=== PATIENT | male | born 1950 | race African-American/Black ===

== ENCOUNTER → 2017-04-19 | Outpatient (CLI) | payer MEDICARE, OTHER ==
[~2017-04-19] MED LIST: ACETAMINOPHEN325 MG PO; ADVAIR 250-501 EACH IH; ADVAIR INH; ALBUTEROL17 GM INH; CAPOZIDE PO; DAPTOMYCIN IV; IBUPROFEN PO; KCL PO; LASIX PO; OMNICEF PO; PERCOCET5/325 PO; PROTONIX PO; TRIAMTERENE-HC1 EACH PO; ZITHROMAX PO; ZYLOPRIM PO
--- NOTE | ~2017-04-19 | MR113 ---
[facility] A Service of [facility] & [facility] RADIOLOGY TEXT RESULTS PATIENT: JOYCE STANFORD LOCATION: [facility] : 50 UNIT #: [id number] AGE: [address]: KARLEE SAHNI SEX: M ORDER DR: [id number] [address] [address] [id number] O MR#: [id number] Acc #: [id number] NAME: JOYCE STANFORD. : 1950 SEX: M STUDY DATE/TIME: 04/19/2017 13:54 UNIT: [facility] ROOM: STUDY DESCRIPTION: MR Lumbar Wo Contrast Attending Physician: Karlee Sahni M.D. Referring Physician: Karlee Sahni M.D. Ordering Physician: Crow Puentes M.D. Primary Care Physician: Crow Puentes M.D. MRI CENTER REPORT This report is preliminary unless electronic signature is present. EXAM MRI of the lumbar spine without HISTORY Patient with low back pain. Increasing low back pain with right lower extremity radiculopathy and right groin pain for 4 months. Patient has had frequent falls. No history of cancer. TECHNIQUE MRI of the lumbar spine was performed without contrast using routine 1.5-T imaging technique on a wide-bore system. COMPARISON STUDIES There is no previous lumbar spine study. FINDINGS There is some exaggeration of lumbar lordosis and there is about 2-3 mm grade 1 anterolisthesis of L4 on L5 secondary to facet arthritis. 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 Correlation with plain films recommended for more accurate counting, if intervention is pursued. 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 Both of these factors contribute to multilevel lumbar canal stenosis. There are mild marrow endplate degenerative changes, predominately type 2. Schmorl node formation, most prominent inferior endplate of L4. Intervertebral discs are desiccated, most apparent L2-L3 through L4-L5 levels, to a lesser extent at the L5-S1 level. Conus medullaris terminates at L1-L2 level and is normal. At L1-L2, there is ciqx-im-wbrymrmd facet arthritis bilaterally with ligamentum flavum thickening. There is no focal disc protrusion or STS. [facility] A Service of [facility] / [facility] RADIOLOGY TEXT RESULTS PATIENT: JOYCE STANFORD LOCATION: [facility] : 50 UNIT #: [id number] AGE: [address]: KARLEE SAHNI SEX: M ORDER DR: christine. There is mild mass effect on the thecal sac. No significant foraminal impingement. At L2-L3, there is moderate facet arthritis bilaterally with severe ligamentum flavum thickening. Canal is developmentally small. The epidural fat is prominent and there is concentric disc bulge with a superimposed broad posterior protrusion/extrusion extending into bilateral foramina. The combination of findings results in severe canal stenosis with mass effect on the bilateral-lateral recesses and there is mhrd-lw-fdaqaamk left and right-sided foraminal narrowing. At L3-L4, there is severe facet arthritis bilaterally with severe ligamentum flavum thickening. There is a mild broad-based posterior disc protrusion and mild prominence of the epidural fat. The combination of findings results in severe canal stenosis. Disc material extends into the inferior foramina and there is approximately moderate right and left foraminal impingement. At L4-L5, there is severe facet arthritis which accounts for the anterolisthesis of L4 on L5 and there is severe ligamentum flavum thickening. There is a mild concentric disc bulge with a superimposed broad posterior protrusion/extrusion remaining contiguous with the disc, extending slightly cephalad from the disc level. The combination of findings results in severe canal stenosis and mass effect on the bilateral-lateral recesses, slightly worse to the right than the left. Disc material extends into the foramina and there is approximately moderate foraminal impingement bilaterally. At L5-S1, there is bilateral facet arthritis, severe on the aftfh-rcdlsml-kfgh-left, with uasikaqt-kr-oyeyek bilateral ligamentum flavum thickening. There is broad posterior disc protrusion which extends into the foramina and there is probably a more focal component of extrusion to the right side posterolaterally in the foramen and extending lateral to the foramen. The combination of findings results in rjlcfboh-ul-nfocsy canal stenosis with mass effect on the httqz-fnlhfir-mvxb-left lateral recess. There is severe right-sided foraminal impingement with mass effect on expected location of what is called the L5 root and there is ivbfbwmp-id-kkivuz left-sided foraminal impingement. No abnormality appreciated at the hypoplastic S1-S2 level on sagittal imaging. There is partial demonstration of a probable right renal cyst. IMPRESSION 1. 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 Using this numbering, there is grade 1 degenerative anterolisthesis of L4 on L5. This patient has preexisting, developmentally small lumbar canal with a component of epidural lipomatosis and superimposed degenerative disease. [facility] A Service of [facility] / [facility] RADIOLOGY TEXT RESULTS PATIENT: JOYCE STANFORD LOCATION: [facility] : 50 UNIT #: [id number] AGE: [address]: KARLEE SAHNI SEX: M ORDER DR: The combination of findings results in multilevel severe canal stenosis. Please refer to the eimjp-ft-mznph discussion of findings. Findings are most severe at the L4-L5 level, particularly to the right side. Dictated by... Mara Rod M.D. THIS IS AN ELECTRONICALLY VERIFIED REPORT Mara Rod M.D. at 04/20/2017 7:30 AM SAC/pcl TD: 04/20/2017 00:01 JOB #: [id number] MRI CENTER REPORT Page 1 of 1
== END | disposition home or self-care (01) ==
LOC: SMRI 13:27
DX: M51.16 Intervertebral disc disorders with radiculopathy, lumbar region (principal); M47.26 Other spondylosis with radiculopathy, lumbar region; M40.56 Lordosis, unspecified, lumbar region; M43.16 Spondylolisthesis, lumbar region; M46.96 Unspecified inflammatory spondylopathy, lumbar region; E88.2 Lipomatosis, not elsewhere classified; M48.06 Spinal stenosis, lumbar region; M51.46 Schmorl's nodes, lumbar region
CPT/HCPCS: 72148